=== PATIENT | female | born 1950 | race Two or more races ===

== ENCOUNTER 2025-03-05 18:09 | Inpatient (IN) | payer MEDICARE, OTHER ==
[~2025-03-05] VITALS: Ht 167.6 cm; Wt 57.2 kg
[2025-03-05] MEDS ORDERED: IOHEXOL-350 100 ML VIAL IV ONE (18:19)
[2025-03-05] MEDS ORDERED: IV NS 0.9% 250 ML IV ONE (18:19)
[2025-03-05 18:32] LABS: PLATELET COUNT (AUTO) 262 K/uL (150-450); RED BLOOD CELL COUNT(AUTO) 4.26 MIL/uL (4.0-5.2); RED CELL DISTRIBUTION WIDTH 13.0 % (11.5-15.0); WHITE BLOOD COUNT (AUTO) 5.8 K/uL (4.3-11.0)
[2025-03-05 18:43] LABS: CALCIUM, SERUM 8.8 mg/dL (8.5-10.1); CREATININE 0.8 mg/dL (0.6-1.3); SODIUM SERUM 136 mmol/L (136-145); UREA NITROGEN, BLOOD 14 mg/dL (7-18)
[2025-03-05 18:44] LABS: INR 0.97 (0.91-1.10)
[2025-03-05 18:49] LABS: ASPARTATE AMINOTRANSFERASE 15 U/L (15-37); TOTAL PROTEIN, SERUM 7.1 g/dL (6.4-8.2)
[2025-03-05] MEDS: IV NS 0.9% 500 ML BAG IV ONE (19:10)
[2025-03-05 21:26] LABS: APPEARANCE,URINE CLEAR (CLEAR); BLOOD, URINE NEGATIVE Ery/uL (NEGATIVE); LEUKOCYTE ESTERASE ,URINE NEGATIVE (NEGATIVE); NITRITE, URINE NEGATIVE (NEGATIVE); UGLUCOSE NEGATIVE (NEGATIVE)
[2025-03-05] MEDS ORDERED: ASPIRIN EC 325 MG TABLET.DR PO ONE (21:28)
[2025-03-05] MEDS: ASPIRIN EC 325 MG TABLET.DR PO ONE (21:33)
[2025-03-05 21:53] LABS: AMPHETAMINE, URINE NEGATIVE (NEGATIVE); BARBITURATE, URINE NEGATIVE (NEGATIVE); BENZODIAZEPINE, URINE NEGATIVE (NEGATIVE); CANNABINOID, URINE NEGATIVE (NEGATIVE); COCCAINE, URINE NEGATIVE (NEGATIVE); OPIATE, URINE NEGATIVE (NEGATIVE)
[2025-03-05] MEDS ORDERED: MAGNESIUM HYDROXIDE 30 ML UDC PO PRN (22:00)
[2025-03-05] MEDS ORDERED: MAG HYDROX/AL HYDROX/SIMETH 30 ML UDC PO PRN (22:00)
[2025-03-05] MEDS ORDERED: ONDANSETRON HCL/PF 4 MG/2 ML VIAL IVP PRN (22:00)
[2025-03-05] MEDS ORDERED: ACETAMINOPHEN 325 MG TABLET PO PRN (22:00)
[2025-03-05 22:20] VITALS: BP 118/78; TEMP 98.1; O2SAT 95
[2025-03-05] MEDS: IV NS 0.9% 1,000 ML IV PRN (23:33)
[2025-03-06] VITALS: BP 122/62; TEMP 98.2; O2SAT 95
[2025-03-06 00:44] VITALS: BP 133/73; TEMP 99.5; O2SAT 99
[2025-03-06 04:15] VITALS: BP 101/56; TEMP 98.1; O2SAT 96
[2025-03-06 05:33] VITALS: BP 120/70; TEMP 98.1; O2SAT 96
[2025-03-06 06:55] LABS: CALCIUM, SERUM 8.4 mg/dL (8.5-10.1); CREATININE 0.8 mg/dL (0.6-1.3); PHOSPHORUS 3.5 mg/dL (2.5-4.9); SODIUM SERUM 137.0 mmol/L (136-145); UREA NITROGEN, BLOOD 11.0 mg/dL (7-18)
[2025-03-06 07:11] LABS: PLATELET COUNT (AUTO) 243 K/uL (150-450); RED BLOOD CELL COUNT(AUTO) 3.83 MIL/uL (4.0-5.2); RED CELL DISTRIBUTION WIDTH 13.0 % (11.5-15.0); WHITE BLOOD COUNT (AUTO) 7.2 K/uL (4.3-11.0)
[2025-03-06] MEDS: PANTOPRAZOLE 40 MG TABLET.DR PO SCH (07:30)
[2025-03-06 07:40] LABS: LDL 130.0 mg/dL (0-99)
[2025-03-06 08:00] VITALS: BP 101/65; TEMP 97.9; O2SAT 95
[2025-03-06 12:17] LABS: ALCOHOL, BLOOD < 3 mg/dL (0-10)
[2025-03-06] MEDS: POTASSIUM CHLORIDE 20 MEQ TAB.PRT.SR PO SCH (14:35)
[2025-03-06 16:00] VITALS: BP 110/63; TEMP 98.1; O2SAT 98
== END 2025-03-06 18:17 | disposition home or self-care (01) | DRG 882 ==
LOC: ER 18:15 → TELE 21:40
PROVIDERS: ADMIT Nurse Practitioner Family; ATTEND Nurse Practitioner Acute Care
DX: F43.9 Reaction to severe stress, unspecified (principal); G93.40 Encephalopathy, unspecified; M47.812 Spondylosis without myelopathy or radiculopathy, cervical region; R73.9 Hyperglycemia, unspecified; I10 Essential (primary) hypertension; E78.5 Hyperlipidemia, unspecified; R29.700 NIHSS score 0; E87.6 Hypokalemia; Z86.73 Personal history of transient ischemic attack (TIA), and cerebral infarction without residual deficits; Z91.199 Patient's noncompliance with other medical treatment and regimen due to unspecified reason; Z72.820 Sleep deprivation
CPT/HCPCS: 36415; 70450-TC; 70496-TC; 70498-TC; 70551-TC; 71045-TC; 80048-TC; 80061-TC; 80076-TC; 82040-TC; 82140-TC; 82607-TC; 83735-TC; 84100-TC; 84443-TC; 84484-TC; 85025-TC; 85730-TC; 92526; 92611; 93307-TC; 97110-TC; 97116-TC; 97530-TC; 97535-TC; A4223; G0378; G0480; J7030; J7040; J7050; Q9967